=== PATIENT | female | born 1940 | race Caucasian/White ===

== ENCOUNTER 2017-07-12 15:30 | Emergency (ER) | payer MEDICARE, BC ==
[~2017-07-12] VITALS: Ht 152.4 cm; Wt 75.9 kg
[~2017-07-12 15:30] MED LIST: ANAS1 PO; ASPI81TA82 PO; ATELTAB; BENI20TA25 PO; BETH25TA PO; CITA10TA4 PO; CORE6.25 PO; HYDR-2768 PO; NEXI40CA PO; REST30CA PO; ROSU10 PO; SYNT88TA PO
[2017-07-12 15:35] VITALS: BP 173/87; PULSE 76; RESP 16; TEMP 97.3; O2SAT 94
[2017-07-12] MEDS ORDERED: LEVO75TA3 PO (15:58)
[2017-07-12] MEDS ORDERED: ROSU10 PO (15:58)
[2017-07-12] MEDS ORDERED: HYDR12.57 PO (15:58)
[2017-07-12] MEDS ORDERED: CARV6.252 PO (15:58)
[2017-07-12] MEDS ORDERED: NEXI40CA PO (15:58)
--- NOTE | 2017-07-12 16:43 | RADRPT ---
EXAM DATE/TIME: 07/12/2017 16:21 [facility] COMPARISON: CT ABDOMEN & PELVIS W CONTRAST, November 16, 2013, 16:48. INDICATIONS : Fell today , facial, head , knee and foot injurys MEDICAL HISTORY : Carcinoma, breast. Carcinoma, gastric. SURGICAL HISTORY : None. ENCOUNTER: Initial ACUITY: 1 day PAIN SCORE: 0/10 LOCATION: Bilateral chest FINDINGS: A single AP erect view of the chest was obtained. The study is Midinspiratory with crowding of the hien ng vasculature. There is mild streaky opacity at the lung bases with no focal consolidation or effusi on. Mild atherosclerotic calcifications are present in the aorta. There is a small gas shadow project ed over the mid heart likely representing a small hiatal hernia. There are overlying electrocardiogra m leads. The bony thorax is unremarkable. CONCLUSION: 1. Midinspiratory exam with no acute cardiac pulmonary disease. 2. Apparent atelectasis at the lung bases. 3. Probable retrocardiac hiatal hernia. Kwasi Espino MD on July 12, 2017 at 16:41 Board Certified Radiologist. This report was verified electronically.
--- NOTE | 2017-07-12 16:44 | RADRPT ---
EXAM DATE/TIME: 07/12/2017 16:27 [facility] COMPARISON: No previous studies available for comparison. INDICATIONS : Fell, right knee pain MEDICAL HISTORY : Carcinoma, breast. Carcinoma, gastric. SURGICAL HISTORY : None. ENCOUNTER: Initial ACUITY: 1 day PAIN SCORE: 3/10 LOCATION: Right knee FINDINGS: A standard 4 view examination of the right knee was obtained and demonstrates mild osteopenia and nor mal alignment. There is no evidence of fracture. The patella is intact. 3 compartment osteoarthritic changes are noted with mild joint space loss, sclerosis and spurring. There is no evidence of a joint effusion. The soft tissues are unremarkable. CONCLUSION: 1. No acute fracture or malalignment. 2. 3 compartment mild osteoarthritic change. Kwasi Espino MD on July 12, 2017 at 16:42 Board Certified Radiologist. This report was verified electronically.
--- NOTE | 2017-07-12 16:45 | PD ---
HPI Chief Complaint: Fall Time Seen by Provider: 15:51 Travel History International Travel<30 days: No Contact w/Intl Traveler<30days: No Traveled to known affect area: No History of Present Illness HPI Patient is a very pleasant 77-year-old female who presents to emergency room with complaints of fall. Patient reports that on Thursday, 2 days ago, she was at the [employer] playground with her 4-year-old foster child. Reports that her foster child ran at her and jumped onto her in excitement while hugging her. Reports that she fell forward and hit her head on the hard floor, reports that she did black out at that time. Patient reports that she was only unresponsive for a few minutes but was able to come to pretty fast. Reports that she was not seen in the emergency room after her fall or she felt fine. Patient reports that today, she was trying to step over her foster child when all of a sudden she put a leg out and she tripped over it. Reports that this time, she fell forward and hit her head on the hard floor. Reports no loss of consciousness at this time. Reports that she hit her head at the same exact place where she had injured it a few days ago. Reports that she is not on any anticoagulants at this time. Reports mild headache. Reports that she just wanted to make sure she didn't have a bleed in her head. Denies any vision changes this time. 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 Gynecologic Surgery: Yes (BILATERAL BREAST LUMPECTOMY AND LYMPH NODE REMOVAL) Hysterectomy: Yes (1973) Mastectomy: Yes (BILAT) Oral Surgery: Yes (goiter removed) Pacemaker: No Tonsillectomy: Yes (1950) Other Surgery: Yes (GOITER REMOVED 1981, HERNIA REPAIR) Social History Alcohol Use: No Tobacco Use: No Substance Use: No Allergies-Medications (Allergen,Severity, Reaction): Coded Allergies: Sulfa (Sulfonamide Antibiotics) (Unverified Allergy, Severe, Rash, 07/12/17 ) Reported Meds & Prescriptions Reported Meds & Active Scripts Active Reported Nexium (Esomeprazole DR) 40 Mg Capdr 40 Mg PO DAILY Levothyroxine (Levothyroxine Sodium) 75 Mcg Tab 75 Mcg PO DAILY Crestor (Rosuvastatin Calcium) 10 Mg Tab 10 Mg PO DAILY Carvedilol 6.25 Mg Tab 6.25 Mg PO BID Hydrochlorothiazide 12.5 Mg Cap 12.5 Mg PO BID Review of Systems General / Constitutional: No: Fever Eyes: No: Visual changes HENT: Positive: Headaches Cardiovascular: No: Chest Pain or Discomfort Respiratory: No: Shortness of Breath Gastrointestinal: No: Abdominal Pain Genitourinary: No: Dysuria Musculoskeletal: No: Pain Skin: No Rash Neurologic: No: Weakness Psychiatric: No: Depression Endocrine: No: Polydipsia Hematologic/Lymphatic: No: Easy Bruising Physical Exam Narrative GENERAL: Mild distress SKIN: Focused skin assessment warm/dry. HEAD: Normocephalic. EYES: Pupils equal and round. No scleral icterus. No injection or drainage. EOMIs intact, patient with right-sided periorbital ecchymosis ENT: No nasal bleeding or discharge. Mucous membranes pink and moist. NECK: Trachea midline. No JVD. CARDIOVASCULAR: Regular rate and rhythm. No murmur appreciated. RESPIRATORY: No accessory muscle use. Clear to auscultation. Breath sounds equal bilaterally. GASTROINTESTINAL: Abdomen soft, non-tender, nondistended. Hepatic and splenic margins not palpable. MUSCULOSKELETAL: No obvious deformities. No clubbing. No cyanosis. No edema. Patient with pain with range of motion to her right knee - there are no bruising on exam, no obvious fracture or open fracture NEUROLOGICAL: Awake and alert. No obvious cranial nerve deficits. Motor grossly within normal limits. Normal speech. PSYCHIATRIC: Appropriate mood and affect; insight and judgment normal. Data Data Last Documented VS Vital Signs Date Time Temp Pulse Resp B/P (MAP) Pulse Ox O2 Delivery O2 Flow Rate FiO2 07/12/17 15:53 98 Room Air 07/12/17 15:35 97.3 76 16 173/87 (115) Orders Orders Chest, Single Ap (07/12/17 16:05) Ct Brain W/O Iv Contrast(Rout) (07/12/17 16:05) Ct Cerv Spine W/O Contrast (07/12/17 16:05) Ct Facial Bones W/O Iv Cont (07/12/17 16:05) Knee, Complete (4vws) (07/12/17 ) Foot, Complete ([id number]) (07/12/17 ) Ibuprofen (Motrin) (07/12/17 17:15) MDM Medical Decision Making Medical Screen Exam Complete: Yes Emergency Medical Condition: Yes Medical Record Reviewed: Yes Interpretation(s) Vital Signs Date Time Temp Pulse Resp B/P (MAP) Pulse Ox O2 Delivery O2 Flow Rate FiO2 07/12/17 15:53 98 Room Air 07/12/17 15:35 97.3 76 16 173/87 (115) 94 Differential Diagnosis Differential Includes facial bone fracture, intracranial hemorrhage, knee contusion, patellar fracture Narrative Course Patient is a 77-year-old female who presents to emergency room for evaluation of multiple mechanical falls. Vital Signs Date Time Temp Pulse Resp B/P (MAP) Pulse Ox O2 Delivery O2 Flow Rate FiO2 07/12/17 15:53 98 Room Air 07/12/17 15:35 97.3 76 16 173/87 (115) 94 Vital signs stable this time, patient only reports taking a baby aspirin daily. CT of the head, facial bones, neck, x-ray of the knee and right foot ordered. Patient does not want any pain medications at this time, will monitor patient Last Impressions Maxillofacial CT 07/12/17 1603 Signed Impressions: Service Date/Time: Wednesday, July 12, 2017 16:36 - CONCLUSION: 1. Soft tissue swelling over the right orbit and frontal bone with no evidence of fracture. 2. Small retention cyst in the right maxillary sinus and minimal mucosal thickening. Kwasi Espino MD Head CT 07/12/17 1600 Signed Impressions: Service Date/Time: Wednesday, July 12, 2017 16:36 - CONCLUSION: 1. Soft tissue swelling over the right frontal bone and orbit with no fracture or hemorrhage. 2. Mild atrophic change. Kwasi Espino MD Chest X-Ray 07/12/17 1605 Signed Impressions: Service Date/Time: Wednesday, July 12, 2017 16:21 - CONCLUSION: 1. Midinspiratory exam with no acute cardiac pulmonary disease. 2. Apparent atelectasis at the lung bases. 3. Probable retrocardiac hiatal hernia. Kwasi Espino MD Knee X-Ray 07/12/17 0000 Signed Impressions: Service Date/Time: Wednesday, July 12, 2017 16:27 - CONCLUSION: 1. No acute fracture or malalignment. 2. 3 compartment mild osteoarthritic change. Kwasi Espino MD Foot X-Ray 07/12/17 0000 Signed Impressions: Service Date/Time: Wednesday, July 12, 2017 16:26 - CONCLUSION: 1. No acute fracture or malalignment. 2. Mild osteoarthritic change. 3. Small spur off the inferior calcaneus. Kwasi Espino MD Patient with no acute intracranial hemorrhage, no acute fractures this time. Plan for patient to follow up with her primary care doctor and will have her return to the emergency room as needed. Diagnosis Primary Impression: Fall Qualified Codes: W19.XXXA - Unspecified fall, initial encounter Additional Impressions: Facial bruising Qualified Codes: S00.83XA - Contusion of other part of head, initial encounter Head injuries Qualified Codes: S09.90XA - Unspecified injury of head, initial encounter Osteoarthritis Qualified Codes: M17.11 - Unilateral primary osteoarthritis, right knee Bone spur of right foot Patient Instructions: General Instructions Additional Instructions: Please provide patient with a copy of her studies at discharge Please follow-up with your primary care doctor Return to the emergency room as needed Return to the emergency room symptoms worsen or progress Please patient ice pack to your area of bruising Disposition: 01 DISCHARGE HOME Condition: Stable Daphnie Littlejohn DO Jul 12, 2017 16:45
--- NOTE | 2017-07-12 16:46 | RADRPT ---
EXAM DATE/TIME: 07/12/2017 16:26 [facility] COMPARISON: No previous studies available for comparison. INDICATIONS : Fell today, right foot pain, pain worse at big toe MEDICAL HISTORY : Carcinoma, breast. Carcinoma, gastric. SURGICAL HISTORY : None. ENCOUNTER: Initial ACUITY: 1 day PAIN SCORE: 3/10 LOCATION: Right foot FINDINGS: AP, lateral and oblique views of the right foot were obtained and demonstrate diffuse osteopenia with no acute fracture or malalignment. The metatarsals and phalanges are intact. There are degenerative joint changes greatest involving the metatarsal tarsal joints and intertarsal joints with joint space loss and sclerosis. There is a small spur off the inferior calcaneus at the site of attachment of th e plantar aponuerosis. No focal soft tissue abnormality is identified radiographically. CONCLUSION: 1. No acute fracture or malalignment. 2. Mild osteoarthritic change. 3. Small spur off the inferior calcaneus. Kwasi Espino MD on July 12, 2017 at 16:43 Board Certified Radiologist. This report was verified electronically.
--- NOTE | 2017-07-12 16:57 | RADRPT ---
EXAM DATE/TIME: 07/12/2017 16:36 [facility] COMPARISON: No previous studies available for comparison. INDICATIONS : Tripped and fell yesterday. Right frontal pain and swelling. RADIATION DOSE: 56.34 CTDIvol (mGy) MEDICAL HISTORY : Hypertension. Carcinoma, breast. Diabetes. Stomach cancer. Coronary artery disease. SURGICAL HISTORY : Mastectomy, bilateral. Hysterectomy. ENCOUNTER: Initial ACUITY: 2 days PAIN SCALE: 5/10 LOCATION: cranial TECHNIQUE: Multiple contiguous axial images were obtained of the head. Using automated exposure control and adj ustment of the mA and/or kV according to patient size, radiation dose was kept as low as reasonably a chievable to obtain optimal diagnostic quality images. DICOM format image data is available electro nically for review and comparison. FINDINGS: CEREBRUM: The ventricles are normal for age. No evidence of midline shift, mass lesion, hemorrhage or acute in farction. No extra-axial fluid collections are seen. POSTERIOR FOSSA: The cerebellum and brainstem are intact. The 4th ventricle is midline. The cerebellopontine angle i s unremarkable. EXTRACRANIAL: The visualized portion of the orbits is intact. SKULL: The calvaria is intact. No evidence of skull fracture. There is soft tissue swelling over the right frontal bone and orbit. CONCLUSION: 1. Soft tissue swelling over the right frontal bone and orbit with no fracture or hemorrhage. 2. Mild atrophic change. Kwasi Espino MD on July 12, 2017 at 16:54 Board Certified Radiologist. This report was verified electronically.
--- NOTE | 2017-07-12 16:59 | RADRPT ---
EXAM DATE/TIME: 07/12/2017 16:36 [facility] COMPARISON: No previous studies available for comparison. INDICATIONS : Tripped and fell yesterday. Anus swelling over the right frontal bone and orbit.. RADIATION DOSE: 25.62 CTDIvol (mGy) MEDICAL HISTORY : Carcinoma, breast. Hypertension. Stomach cancer. Diabetes. Coronary artery disease. SURGICAL HISTORY : Mastectomy, bilateral. Hysterectomy. ENCOUNTER: Initial ACUITY: 2 days PAIN SCORE: 5/10 LOCATION: Right facial TECHNIQUE: Volumetric scanning of the facial bones was performed. Using automated exposure control and adjustme nt of the mA and/or kV according to patient size, radiation dose was kept as low as reasonably achiev able to obtain optimal diagnostic quality images. DICOM format image data is available [email or web address] y for review and comparison. FINDINGS: ORBITS: The orbital and infraorbital osseous structures are intact. The retroconal structures have a normal configuration. No radiopaque foreign bodies are seen. NASAL BONE: The nasal bone and maxillary spine are intact ZYGOMATIC ARCHES: Symmetric without evidence of fracture. SINUSES: The maxillary, ethmoid and frontal sinuses are intact. There is a small retention cyst in the right maxillary sinus. There is minimal because of thickening. No air-fluid levels seen. NASAL CAVITY: The nasal septum is intact and midline. The lacrimal ducts are intact. SOFT TISSUES: No radiopaque foreign bodies seen. There is soft tissue swelling over the right orbit and frontal bon e. INTRACRANIAL: No intracranial air seen. CRIBIFORM PLATE: Grossly intact. CONCLUSION: 1. Soft tissue swelling over the right orbit and frontal bone with no evidence of fracture. 2. Small retention cyst in the right maxillary sinus and minimal mucosal thickening. Kwasi Espino MD on July 12, 2017 at 16:56 Board Certified Radiologist. This report was verified electronically.
--- NOTE | 2017-07-12 17:10 | RADRPT ---
EXAM DATE/TIME: 07/12/2017 16:36 [facility] COMPARISON: No previous studies available for comparison. INDICATIONS : Tripped and fell yesterday. Neck pain. RADIATION DOSE: 26.48 CTDIvol (mGy) MEDICAL HISTORY : Carcinoma, breast. Hypertension. Diabetes. Coronary artery disease. Stomach cancer. SURGICAL HISTORY : Mastectomy, bilateral. Hysterectomy. ENCOUNTER: Initial ACUITY: 2 days PAIN SCALE: 5/10 LOCATION: neck TECHNIQUE: Volumetric scanning of the cervical spine was performed. Multiplanar reconstructions in the sagittal, coronal and oblique axial planes were performed. Using automated exposure control and adjustment o f the mA and/or kV according to patient size, radiation dose was kept as low as reasonably achievable to obtain optimal diagnostic quality images. DICOM format image data is available electronically f or review and comparison. FINDINGS: The sagittal reconstructions demonstrate that the vertebral bodies are intact and there is normal pre vertebral soft tissues. The dens is intact and there is a normal atlantoaxial relationship. There is a slight anterior spondylolisthesis of C5 on C6 of 1-2 mm. There are mild degenerative changes at the C6-7 level. Degenerative changes are noted involving the atlantoaxial joint. The axial images demonstrate that the vertebral bodies and posterior elements are intact. The soft ti ssues are within normal limits. There is no evidence of acute fracture or malalignment. There are deg enerative changes involving the facets. CONCLUSION: Negative trauma CT. Kwasi Espino MD on July 12, 2017 at 17:01 Board Certified Radiologist. This report was verified electronically.
[2017-07-12] MEDS ORDERED: IBUPROFEN 600 MG TAB PO ONE (17:15)
== END 2017-07-12 17:35 | disposition home or self-care (01) ==
LOC: PHED 15:30
DX: S00.83XA Contusion of other part of head, initial encounter (principal); S09.90XA Unspecified injury of head, initial encounter; M17.11 Unilateral primary osteoarthritis, right knee; Z85.028 Personal history of other malignant neoplasm of stomach; Z85.3 Personal history of malignant neoplasm of breast; E78.00 Pure hypercholesterolemia, unspecified; I50.9 Heart failure, unspecified; I11.0 Hypertensive heart disease with heart failure; J44.9 Chronic obstructive pulmonary disease, unspecified; I25.10 Atherosclerotic heart disease of native coronary artery without angina pectoris; E11.9 Type 2 diabetes mellitus without complications; E03.9 Hypothyroidism, unspecified
CPT/HCPCS: 70450; 70486; 71010; 72125; 73564; 73630; 99285

== ENCOUNTER 2018-03-03 14:20 | Observation (INO) | payer MEDICARE, BC ==
[~2018-03-03] VITALS: Ht 152.4 cm; Wt 77.7 kg
[~2018-03-03 14:20] MED LIST changes: -ANAS1 PO; -ASPI81TA82 PO; -ATELTAB; -BENI20TA25 PO; -BETH25TA PO; +CARV6.252 PO; -CITA10TA4 PO; -CORE6.25 PO; -HYDR-2768 PO; +HYDR12.57 PO; +LEVO75TA3 PO; -REST30CA PO; -SYNT88TA PO
[2018-03-03 14:37] VITALS: BP 127/74; PULSE 84; RESP 16; TEMP 98.4; O2SAT 94
[2018-03-03] MEDS ORDERED: PANTOPRAZOLE INJ 80 MG in SODIUM CHLORIDE 0.9% INJ 35 ML IV ONE (14:53)
[2018-03-03 14:58] VITALS: BP 155/79; PULSE 84; RESP 18; O2SAT 96
--- NOTE | 2018-03-03 14:59 | PD ---
HPI Chief Complaint: GI Complaint Time Seen by Provider: 14:43 Travel History International Travel<30 days: No Contact w/Intl Traveler<30days: No Traveled to known affect area: No History of Present Illness HPI This is a 77-year-old female who presents for evaluation. For the past 4-5 days she has been feeling nauseous. She reports over the past 2 days she has been having nausea, vomiting, diarrhea. She reports multiple episodes of black stool as well as black emesis. She reports some streaks of bright red blood in her emesis yesterday. She denies any lightheadedness, dizziness, shortness of breath, chest pain, abdominal pain, fevers, chills. She reports that she uses aspirin on a daily basis and for the past several months she has been using BC powder on a regular basis for treatment of back pain. Denies any use of Pepto- Bismol. She follows with ordnance engineer Dr. Brady. She called his office today and was referred here for further evaluation. 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 Gynecologic Surgery: Yes (BILATERAL BREAST LUMPECTOMY AND LYMPH NODE REMOVAL) Hysterectomy: Yes (1973) Mastectomy: Yes (BILAT) Oral Surgery: Yes (goiter removed) Pacemaker: No Tonsillectomy: Yes (1950) Other Surgery: Yes (GOITER REMOVED 1981, HERNIA REPAIR) Social History Alcohol Use: No Tobacco Use: No Substance Use: No Allergies-Medications (Allergen,Severity, Reaction): Coded Allergies: Sulfa (Sulfonamide Antibiotics) (Unverified Allergy, Severe, Rash, 07/12/17 ) Reported Meds & Prescriptions Reported Meds & Active Scripts Active Reported Zolpidem (Zolpidem Tartrate) 10 Mg Tab 10 Mg PO HS PRN Meloxicam 7.5 Mg Tab 7.5 Mg PO DAILY Benicar (Olmesartan) 20 Mg Tab 20 Mg PO DAILY Bethanechol 25 Mg Tab 25 Mg PO Q8HR Nexium (Esomeprazole DR) 40 Mg Capdr 40 Mg PO DAILY Levothyroxine (Levothyroxine Sodium) 75 Mcg Tab 88 Mcg PO DAILY Crestor (Rosuvastatin Calcium) 10 Mg Tab 10 Mg PO DAILY Carvedilol 6.25 Mg Tab 6.25 Mg PO BID Hydrochlorothiazide 12.5 Mg Cap 25 Mg PO DAILY Review of Systems Except as stated in HPI: all other systems reviewed are Neg Physical Exam Narrative GENERAL: Pleasant well-developed well-nourished female no acute distress SKIN: Warm and dry. HEAD: Atraumatic. Normocephalic. EYES: Pupils equal and round. No scleral icterus. No injection or drainage. ENT: No nasal bleeding or discharge. Mucous membranes pink and moist. NECK: Trachea midline. No JVD. CARDIOVASCULAR: Regular rate and rhythm. No murmur appreciated. RESPIRATORY: No accessory muscle use. Clear to auscultation. Breath sounds equal bilaterally. GASTROINTESTINAL: Abdomen soft, non-tender, nondistended. Hepatic and splenic margins not palpable. Rectal examination in the presence of a female nurse reveals light brown stool with streaks of dark red blood, Hemoccult positive. MUSCULOSKELETAL: No obvious deformities. No clubbing. No cyanosis. No edema. NEUROLOGICAL: Awake and alert. No obvious cranial nerve deficits. Motor grossly within normal limits. Normal speech. PSYCHIATRIC: Appropriate mood and affect; insight and judgment normal. Data Data Last Documented VS Vital Signs Date Time Temp Pulse Resp B/P (MAP) Pulse Ox O2 Delivery O2 Flow Rate FiO2 03/03/18 14:58 18 03/03/18 14:58 84 155/79 (104) 96 Room Air 03/03/18 14:37 98.4 Orders Orders Complete Blood Count With Diff (03/03/18 14:53) Comprehensive Metabolic Panel (03/03/18 14:53) Lipase (03/03/18 14:53) Prothrombin Time / Inr (Pt) (03/03/18 14:53) Act Partial Throm Time (Ptt) (03/03/18 14:53) Type And Screen (03/03/18 14:53) Ecg Monitoring (03/03/18 14:53) Iv Access Insert/Monitor (03/03/18 14:53) Oximetry (03/03/18 14:53) Sodium Chloride 0.9% Flush (Ns Flush) (03/03/18 15:00) Sodium Chloride 0.9... W/Pantoprazole In (03/03/18 14:53) Ondansetron Odt (Zofran Odt) (03/03/18 15:00) Add Patient To Providers List (03/03/18 ) ^ Other Nursing Orders (03/03/18 15:26) Consult Gastroenterology (03/03/18 ) Acetaminophen (Tylenol) (03/03/18 15:45) (Hub Use Only)Inp Phy Cons/Ref (03/03/18 ) Admit Order (Ed Use Only) (03/03/18 16:14) Comprehensive Metabolic Panel (03/04/18 06:00) Free Thyroxine (T4) (03/04/18 06:00) Hemoglobin (Hgb) A1c (03/04/18 06:00) Magnesium (Mg) (03/04/18 06:00) Phosphorus (Po4) (03/04/18 06:00) Thyroid Stimulating Hormone (03/04/18 06:00) Complete Blood Count With Diff (03/04/18 06:00) Bethanechol (Urecholine) (03/03/18 22:00) Carvedilol (Coreg) (03/03/18 21:00) Hydrochlorothiazide (Microzide) (03/04/18 09:00) Levothyroxine (Synthroid) (03/04/18 09:00) Zolpidem (Ambien) (03/03/18 16:15) (Nf) Olmesartan (Benicar) (03/04/18 09:00) (Nf) Rosuvastatin (Crestor) (03/04/18 09:00) Place In Observation (03/03/18 ) Code Status (03/03/18 16:16) Vital Signs (Adult) Q4H (03/03/18 16:16) Activity Oob Ad Shaila (03/03/18 16:16) Bath Attendant / Telemetry .CONTINUOUS (03/03/18 16:16) Intake + Output MAGGIE.QSHIFT (03/03/18 16:16) Diet Clear Liquid (03/03/18 Dinner) Sodium Chloride 0.9% Flush (Ns Flush) (03/03/18 16:30) Sodium Chloride 0.9% Flush (Ns Flush) (03/03/18 21:00) Metoclopramide Inj (Reglan Inj) (03/03/18 16:30) Prochlorperazine Supp (Compazine Supp) (03/03/18 16:30) Prothrombin Time / Inr (Pt) (03/04/18 06:00) Resp Oxygen Bala C Titrat 1-4 L (03/03/18 ) Case Management Consult (03/03/18 16:16) Scd Bilateral/Knee High MAGGIE.BID (03/03/18 16:16) [place]son Bilateral/Knee High MAGGIE.QSHIFT (03/03/18 16:30) Acetaminophen (Tylenol) (03/03/18 16:30) Oxycodone-Acetamin 5-325 Mg (Percocet (03/03/18 16:30) Oxycodone-Acetamin 10-325 Mg (Percocet 1 (03/03/18 16:30) Morphine Inj (Morphine Inj) (03/03/18 16:30) Morphine Inj (Morphine Inj) (03/03/18 16:30) Naloxone Inj (Narcan Inj) (03/03/18 16:30) Docusate Sodium-Senna (Olga Lidia-Colace) (03/03/18 21:00) Magnesium Hydroxide Liq (Milk Of Magnesi (03/03/18 16:30) Sennosides (Senokot) (03/03/18 16:30) Bisacodyl Supp (Dulcolax Supp) (03/03/18 16:30) Lactulose Liq (Lactulose Liq) (03/03/18 16:30) Vital Signs (Adult) Q4H (03/03/18 16:16) Intake + Output MAGGIE.QSHIFT (03/03/18 16:16) Diet Npo (03/04/18 Breakfast) Sodium Chloride 0.9% Flush (Ns Flush) (03/03/18 16:30) Sodium Chloride 0.9% Flush (Ns Flush) (03/03/18 21:00) Sodium Chlor 0.9% 1000 Ml Inj (Ns 1000 M (03/03/18 16:16) Pantoprazole Inj (Protonix Inj) (03/03/18 21:00) Resp Oxygen Bala C Titrat 1-4 L (03/03/18 ) Labs Laboratory Tests Test 03/03/18 15:00 White Blood Count 7.5 TH/MM3 Red Blood Count 4.77 MIL/MM3 Hemoglobin 14.4 GM/DL Hematocrit 42.8 % Mean Corpuscular Volume 89.9 FL Mean Corpuscular Hemoglobin 30.2 PG Mean Corpuscular Hemoglobin Concent 33.6 % Red Cell Distribution Width 13.9 % Platelet Count 283 TH/MM3 Mean Platelet Volume 7.4 FL Neutrophils (%) (Auto) 55.2 % Lymphocytes (%) (Auto) 33.1 % Monocytes (%) (Auto) 8.4 % Eosinophils (%) (Auto) 2.7 % Basophils (%) (Auto) 0.6 % Neutrophils # (Auto) 4.1 TH/MM3 Lymphocytes # (Auto) 2.5 TH/MM3 Monocytes # (Auto) 0.6 TH/MM3 Eosinophils # (Auto) 0.2 TH/MM3 Basophils # (Auto) 0.0 TH/MM3 CBC Comment DIFF FINAL Differential Comment Prothrombin Time 10.6 SEC Prothromb Time International Ratio 1.0 RATIO Activated Partial Thromboplast Time 29.9 SEC Blood Urea Nitrogen 5 MG/DL Creatinine 0.89 MG/DL Random Glucose 143 MG/DL Total Protein 7.8 GM/DL Albumin 3.9 GM/DL Calcium Level 8.9 MG/DL Alkaline Phosphatase 93 U/L Aspartate Amino Transf (AST/SGOT) 22 U/L Alanine Aminotransferase (ALT/SGPT) 17 U/L Total Bilirubin 0.5 MG/DL Sodium Level 137 MEQ/L Potassium Level 3.7 MEQ/L Chloride Level 100 MEQ/L Carbon Dioxide Level 28.3 MEQ/L Anion Gap 9 MEQ/L Estimat Glomerular Filtration Rate 62 ML/MIN Lipase 54 U/L [facility] Medical Decision Making Medical Screen Exam Complete: Yes Emergency Medical Condition: Yes Medical Record Reviewed: Yes Differential Diagnosis GI bleed, peptic ulcer disease, acute anemia, AV malformation, malignancy, polyps, colitis, esophageal varices Narrative Course Patient was placed on ECG monitoring pulse oximetry lab work was ordered. The patient was given Zofran, Protonix bolus. Lab work is reassuring. Operations Processor Dr. Yost came down to see the patient. He plans on performing endoscopy tomorrow and would like the patient to be npo after midnight, recommends reverse Trendelenburg position to help with reflux. HemaPrompt Point of Care Internal Pos. & Neg. Controls: Passed Fecal Specimen Occult Blood: Positive Diagnosis Primary Impression: Upper GI bleed Admitting Information Admitting Physician Requests: Observation Viktor Tan March 03, 2018 14:59
[2018-03-03] MEDS ORDERED: SODIUM CHLORIDE 0.9% FLUSH 10 ML FLUSH IVF PRN (15:00)
[2018-03-03] MEDS ORDERED: ONDANSETRON ODT 4 MG TAB PO ONE (15:00)
[2018-03-03 15:20] LABS: AUTOMATED NEUTROPHIL # 4.1 TH/MM3 (1.8-7.7); BASOPHIL % 0.6 % (0.0-2.0); EOSINOPHIL # 0.2 TH/MM3 (0-0.4); EOSINOPHIL % 2.7 % (0.0-4.0); HEMATOCRIT 42.8 % (35.0-46.0); HEMOGLOBIN 14.4 GM/DL (11.6-15.3); LYMPH % 33.1 % (9.0-44.0); LYMPHOCYTE # 2.5 TH/MM3 (1.0-4.8); MEAN CELL VOLUME 89.9 FL (80.0-100.0); MEAN CORPUSCULAR HEMOGLOBIN 30.2 PG (27.0-34.0); MEAN CORPUSCULAR HGB CONC 33.6 % (32.0-36.0); MEAN PLATELET VOLUME 7.4 FL (7.0-11.0); MONO % 8.4 % (0.0-8.0); MONOCYTE # 0.6 TH/MM3 (0-0.9); NEUT % 55.2 % (16.0-70.0); PLATELET COUNT 283 TH/MM3 (150-450); RED BLOOD COUNT 4.77 MIL/MM3 (4.00-5.30); RED CELL DISTRIBUTION WIDTH 13.9 % (11.6-17.2); WHITE BLOOD COUNT 7.5 TH/MM3 (4.0-11.0)
[2018-03-03 15:31] LABS: ALBUMIN 3.9 GM/DL (3.4-5.0); ALT (GPT) 17 U/L (10-53); AST (GOT) 22 U/L (15-37); BICARBONATE 28.3 MEQ/L (21.0-32.0); BLOOD UREA NITROGEN 5 MG/DL (7-18); CALCIUM 8.9 MG/DL (8.5-10.1); CHLORIDE 100 MEQ/L (98-107); CREATININE 0.89 MG/DL (0.50-1.00); GLOMERULAR FILTRATION RATE 62 ML/MIN (>89); GLUCOSE,RANDOM 143 MG/DL (74-106); SODIUM (NA) 137 MEQ/L (136-145)
[2018-03-03 15:33] LABS: ALKALINE PHOSPHATASE 93 U/L (45-117); TOTAL BILIRUBIN ADULT 0.5 MG/DL (0.2-1.0); TOTAL PROTEIN 7.8 GM/DL (6.4-8.2)
[2018-03-03 15:40] LABS: PROTHROMBIN TIME - PATIENT 10.6 SEC (9.8-11.6)
[2018-03-03] MEDS ORDERED: ACETAMINOPHEN 325 MG TAB PO ONE (15:45)
[2018-03-03] MEDS ORDERED: ZOLP10TA3 PO (16:12)
[2018-03-03] MEDS ORDERED: BETH25TA2 PO (16:12)
[2018-03-03] MEDS ORDERED: OLME1TAB PO (16:12)
[2018-03-03] MEDS ORDERED: MELO7.5T27 PO (16:12)
[2018-03-03] MEDS ORDERED: ZOLPIDEM TARTRATE 10 MG TAB PO PRN (16:15)
[2018-03-03] MEDS ORDERED: PROCHLORPERAZINE 25 MG SUPP PR PRN (16:30)
[2018-03-03] MEDS ORDERED: oxyCODONE/ACETAMINOPHEN 5 MG/325 MG TAB PO PRN (16:30)
[2018-03-03] MEDS ORDERED: BISACODYL 10 MG SUPP RECTAL PRN (16:30)
[2018-03-03] MEDS ORDERED: NALOXONE HCL 0.4 MG/ML AMP IV PUSH PRN (16:30)
[2018-03-03] MEDS ORDERED: SENNOSIDES 8.6 MG TAB PO PRN (16:30)
[2018-03-03] MEDS ORDERED: MAGNESIUM HYDROXIDE SUSP 30 ML CUP PO PRN (16:30)
[2018-03-03] MEDS ORDERED: METOCLOPRAMIDE HCL 10 MG/2 ML VIAL IV PUSH PRN (16:30)
[2018-03-03] MEDS ORDERED: SODIUM CHLORIDE 0.9% FLUSH 10 ML FLUSH IV FLUSH PRN ×2 (16:30)
[2018-03-03] MEDS ORDERED: LACTULOSE SYRUP 20 GM/30 ML CUP PO PRN (16:30)
[2018-03-03] MEDS ORDERED: oxyCODONE/ACETAMINOPHEN 10 MG/325 MG TAB PO PRN (16:30)
[2018-03-03] MEDS ORDERED: ACETAMINOPHEN 325 MG TAB PO PRN (16:30)
[2018-03-03 17:06] VITALS: BP 125/69; PULSE 70; RESP 18; TEMP 97.8; O2SAT 98
[2018-03-03] MEDS ORDERED: MORPHINE SULFATE 4 MG/ML INJ IV PUSH PRN ×2 (18:15)
--- NOTE | 2018-03-03 18:28 | HHI.HP ---
[facility] Ramin Huang MD Admission Diagnosis Upper GI bleed Diagnoses: (1) Upper GI bleed Diagnosis: Principal Chief Complaint: GI complaints Travel History International Travel<30 Days: No Contact w/Intl Traveler <30 Da: No Traveled to Known Affected Are: No History of Present Illness Patient is a 77-year-old female who presented to the emergency department today. She is over the past 4-5 days and feeling nauseated. She also reports that over the past 2-3 days she has been having some nausea and vomiting and some diarrhea. She also reports multiple episodes of black stools as well as some black emesis. Patient HAS also had some bright red blood in her vomit yesterday. SHE denies any lightheadedness, denies any dizziness, denies any shortness of breath, denies any chest pain, denies any abdominal pain, denies any fever, OR chills. She takes an aspirin daily in the morning as well as some meloxicam. As well as BC powder at night daily USUALLY ON AN EMPTY STOMACH. Follows with Dr. JI. WAS REFERRED HERE BY DR JI AND WILL UNDERGO ENDOSCOPY WITH DR MENDIOLA TOMORROW. DOES NOT LIKE TO TAKE PAIN MEDICATIONS OF ANY KIND Review of Systems Constitutional: DENIES: Diaphoretic episodes, Fatigue, Fever, Weight gain, Weight loss, Chills, Dizziness, Change in appetite, Night Sweats Endocrine: DENIES: Abnorml menstrual pattern, Heat/cold intolerance, Polydipsia , Polyuria Eyes: DENIES: Blurred vision, Diplopia, Eye inflammation, Eye pain, Vision loss , Photosensitivity, Double Vision Ears, nose, mouth, throat: DENIES: Tinnitus, Hearing loss, Vertigo, Nasal discharge, Oral lesions, Throat pain, Hoarseness, Ear Pain, Running Nose, Epistaxis, Sinus Pain, Toothache, Odynophagia Respiratory: DENIES: Apneas, Cough, Snoring, Wheezing, Hemoptysis, Sputum production, Shortness of breath Cardiovascular: DENIES: Chest pain, Palpitations, Syncope, Dyspnea on Exertion , PND, Lower Extremity Edema, Orthopnea, Claudication Gastrointestinal: COMPLAINS OF: Abdominal pain, Black stools, Nausea, Vomiting , DENIES: Bloody stools, Constipation, Diarrhea, Difficulty Swallowing, Anorexia Genitourinary: DENIES: Abnormal vaginal bleeding, Dysmenorrhea, Dyspareunia, Sexual dysfunction Musculoskeletal: COMPLAINS OF: Joint pain, Back pain, DENIES: Muscle aches, Stiffness, Joint Swelling, Neck pain Integumentary: DENIES: Abnormal pigmentation, Pruritus, Rash, Nail changes, Breast masses, Breast skin changes, Nipple discharge Hematologic/lymphatic: DENIES: Bruising, Lymphadenopathy Immunologic/allergic: DENIES: Eczema, Urticaria Neurologic: DENIES: Abnormal gait, Headache, Localized weakness, Paresthesias, Seizures, Speech Problems, Tremor, Poor Balance Psychiatric: DENIES: Anxiety, Confusion, Mood changes, Depression, Hallucinations, Agitation, Suicidal Ideation, Homicidal Ideation, Delusions Except as stated in HPI: all other systems reviewed are Neg Past Family Social History Past Medical History Chronic aspirin use Chronic meloxicam use Asthma History of breast cancer bilaterally History of stomach cancer treated with laser in 2011 History of cardiac catheterization Hyperlipidemia Congestive heart failure COPD Coronary artery disease Diabetes History of stomach cancer GERD Hiatal hernia Hypertension Hypothyroidism Arthritis bilateral knees History of radiation therapy Menopausal Past Surgical History Tattoo on breast from a recognizing her cancer was Bilateral breast lumpectomy and lymph node removal Hysterectomy Bilateral meniscectomy Goiter removal tonsillectomy Hernia repair Reported Medications Reported Meds & Active Scripts Active Reported Zolpidem (Zolpidem Tartrate) 10 Mg Tab 10 Mg PO HS PRN Meloxicam 7.5 Mg Tab 7.5 Mg PO DAILY Benicar (Olmesartan) 20 Mg Tab 20 Mg PO DAILY Bethanechol 25 Mg Tab 25 Mg PO Q8HR Nexium (Esomeprazole DR) 40 Mg Capdr 40 Mg PO DAILY Levothyroxine (Levothyroxine Sodium) 75 Mcg Tab 88 Mcg PO DAILY Crestor (Rosuvastatin Calcium) 10 Mg Tab 10 Mg PO DAILY Carvedilol 6.25 Mg Tab 6.25 Mg PO BID Hydrochlorothiazide 12.5 Mg Cap 25 Mg PO DAILY Allergies: Coded Allergies: Sulfa (Sulfonamide Antibiotics) (Unverified Allergy, Severe, Rash, 07/12/17 ) Active Ordered Medications Current Medications Sodium Chloride (NS Flush) 2 ml UNSCH PRN IVF FLUSH AFTER USING IV ACCESS; Start 03/03/18 at 15:00; Stop 03/03/18 at 17:41; Status DC Pantoprazole Sodium 80 mg/ Sodium Chloride 35 ml @ 420 mls/hr Q5M ONCE IV Last administered on 03/03/18at 14:53; Start 03/03/18 at 14:53; Stop 03/03/18 at 14:57; Status DC Ondansetron HCl (Zofran Odt) 4 mg ONCE ONCE PO Last administered on at 15:00; Start 03/03/18 at 15:00; Stop 03/03/18 at 15:01; Status DC Acetaminophen (Tylenol) 650 mg ONCE ONCE PO Last administered on 03/03/18at 17: 30; Start 03/03/18 at 15:45; Stop 03/03/18 at 16:05; Status DC Bethanechol Chloride (Urecholine) 25 mg Q8HR PO ; Start 03/03/18 at 22:00 Carvedilol (Coreg) 6.25 mg BID PO ; Start 03/03/18 at 21:00 Hydrochlorothiazide (Microzide) 25 mg DAILY PO ; Start 03/04/18 at 09:00 Levothyroxine Sodium (Synthroid) 88 mcg DAILY@0600 PO ; Start 03/04/18 at 06:00 Zolpidem Tartrate (Ambien) 10 mg HS PRN PO INSOMNIA; Start 03/03/18 at 16:15 Losartan Potassium (Cozaar) 50 mg DAILY PO ; Start 03/04/18 at 09:00 Atorvastatin Calcium (Lipitor) 20 mg DAILY PO ; Start 03/04/18 at 09:00 Sodium Chloride (NS Flush) 2 ml UNSCH PRN IV FLUSH FLUSH AFTER USING IV ACCESS ; Start 03/03/18 at 16:30 Sodium Chloride (NS Flush) 2 ml BID IV FLUSH ; Start 03/03/18 at 21:00 Metoclopramide HCl (Reglan Inj) 5 mg Q6H PRN IV PUSH NAUSEA OR VOMITING; Start 03/03/18 at 16:30 Prochlorperazine (Compazine Supp) 25 mg Q12H PRN NV NAUSEA OR VOMITING; Start 03/03/18 at 16:30; Status UNV Acetaminophen (Tylenol) 650 mg Q6H PRN PO PAIN SCALE 1 TO 2; Start 03/03/18 at 16:30 Oxycodone/ Acetaminophen (Percocet 5-325 Mg) 1 tab Q6H PRN PO PAIN SCALE 3 TO 5; Start 03/03/18 at 16:30 Oxycodone/ Acetaminophen (Percocet 10-325 Mg) 1 tab Q6H PRN PO PAIN SCALE 6 TO 10; Start 03/03/18 at 16:30 Morphine Sulfate (Morphine Inj) 2 mg Q3H PRN IV PUSH Pain 3-5; if unable to take PO; Start 03/03/18 at 18:15 Morphine Sulfate (Morphine Inj) 4 mg Q3H PRN IV PUSH Pain 6-10;if unable to take PO; Start 03/03/18 at 18:15 Naloxone HCl (Narcan Inj) 0.4 mg UNSCH PRN IV PUSH SEE LABEL COMMENTS; Start at 16:30 Senna/Docusate Sodium (Olga Lidia-Colace) 1 tab BID PO ; Start 03/03/18 at 21:00 Magnesium Hydroxide (Milk Of Magnesia Liq) 30 ml Q12H PRN PO Mild constipation ; Start 03/03/18 at 16:30 Sennosides (Senokot) 17.2 mg Q12H PRN PO Moderate constipation; Start 03/03/18 at 16:30 Bisacodyl (Dulcolax Supp) 10 mg DAILY PRN RECTAL SEVERE CONSITIPATION; Start at 16:30 Lactulose (Lactulose Liq) 30 ml DAILY PRN PO SEVERE CONSITIPATION; Start at 16:30 Sodium Chloride (NS Flush) 2 ml UNSCH PRN IV FLUSH FLUSH AFTER USING IV ACCESS ; Start 03/03/18 at 16:30 Sodium Chloride (NS Flush) 2 ml BID IV FLUSH ; Start 03/03/18 at 21:00 Sodium Chloride 1,000 ml @ 100 mls/hr Q10H IV ; Start 03/03/18 at 18:00 Pantoprazole Sodium (Protonix Inj) 40 mg BID IV PUSH ; Start 03/03/18 at 21:00 Family History Negative history of breast cancer or other malignancies in the family Social History Denies any tobacco, alcohol, or substance use Physical Exam Vital Signs Vital Signs Date Time Temp Pulse Resp B/P (MAP) Pulse Ox O2 Delivery O2 Flow Rate FiO2 03/03/18 17:06 97.8 70 18 125/69 (87) 98 03/03/18 14:58 18 03/03/18 14:58 84 18 155/79 (104) 96 Room Air 03/03/18 14:37 98.4 84 16 127/74 (91) 94 Physical Exam GENERAL: This is a well-nourished, well-developed patient, in no apparent distress. SKIN: No rashes, ecchymoses or lesions. Cool and dry. HEAD: Atraumatic. Normocephalic. No temporal or scalp tenderness. EYES: Pupils equal round and reactive. Extraocular motions intact. No scleral icterus. No injection or drainage. ENT: Nose without bleeding, purulent drainage or septal hematoma. Throat without erythema, tonsillar hypertrophy or exudate. Uvula midline. Airway patent. NECK: Trachea midline. No JVD or lymphadenopathy. Supple, nontender, no meningeal signs. CARDIOVASCULAR: Regular rate and rhythm without murmurs, gallops, or rubs. S1- S2 no S3 or S4 RESPIRATORY: Clear to auscultation. Breath sounds equal bilaterally. No wheezes , rales, or rhonchi. GASTROINTESTINAL: Abdomen soft, non-tender, nondistended. No hepato-splenomegaly , or palpable masses. No guarding. MUSCULOSKELETAL: Extremities without clubbing, cyanosis, or edema. No joint tenderness, effusion, or edema noted. No calf tenderness. Negative Homans sign bilaterally. NEUROLOGICAL: Awake and alert. Cranial nerves II through XII intact. Motor and sensory grossly within normal limits. Five out of 5 muscle strength in all muscle groups. Normal speech. Insight and judgment is good Mood and behaviors are appropriate Laboratory Laboratory Tests Test 03/03/18 15:00 White Blood Count 7.5 Red Blood Count 4.77 Hemoglobin 14.4 Hematocrit 42.8 Mean Corpuscular Volume 89.9 Mean Corpuscular Hemoglobin 30.2 Mean Corpuscular Hemoglobin Concent 33.6 Red Cell Distribution Width 13.9 Platelet Count 283 Mean Platelet Volume 7.4 Neutrophils (%) (Auto) 55.2 Lymphocytes (%) (Auto) 33.1 Monocytes (%) (Auto) 8.4 Eosinophils (%) (Auto) 2.7 Basophils (%) (Auto) 0.6 Neutrophils # (Auto) 4.1 Lymphocytes # (Auto) 2.5 Monocytes # (Auto) 0.6 Eosinophils # (Auto) 0.2 Basophils # (Auto) 0.0 CBC Comment DIFF FINAL Differential Comment Prothrombin Time 10.6 Prothromb Time International Ratio 1.0 Activated Partial Thromboplast Time 29.9 Blood Urea Nitrogen 5 Creatinine 0.89 Random Glucose 143 Total Protein 7.8 Albumin 3.9 Calcium Level 8.9 Alkaline Phosphatase 93 Aspartate Amino Transf (AST/SGOT) 22 Alanine Aminotransferase (ALT/SGPT) 17 Total Bilirubin 0.5 Sodium Level 137 Potassium Level 3.7 Chloride Level 100 Carbon Dioxide Level 28.3 Anion Gap 9 Estimat Glomerular Filtration Rate 62 Lipase 54 Result Diagram: 03/03/18 1500 03/03/18 1500 Imaging None Caprini VTE Risk Assessment Caprini VTE Risk Assessment: No/Low Risk (score <= 1) Caprini Risk Assessment Model Point Value = 1 Point Value = 2 Point Value = 3 Point Value = 5 Age 41-60 Minor surgery BMI > 25 kg/m2 Swollen legs Varicose veins or History of unexplained or recurrent spontaneous Oral contraceptives or hormone replacement Sepsis (< 1 month) Serious lung disease, including pneumonia (< 1 month) Abnormal pulmonary function Acute myocardial infarction Congestive heart failure (< 1 month) History of inflammatory bowel disease Medical patient at bed rest Age 61-74 Arthroscopic surgery Major open surgery (> 45 min) Laparoscopic surgery (> 45 min) Malignancy Confined to bed (> 72 hours) Immobilizing plaster cast Central venous access Age >= 75 History of VTE Family history of VTE Factor V Leiden Prothrombin [id number] Lupus anticoagulant Anticardiolipin antibodies Elevated serum homocysteine Heparin-induced thrombocytopenia Other congenital or acquired thrombophilia Stroke (< 1 month) Elective arthroplasty Hip, pelvis, or leg fracture Acute spinal cord injury (< 1 month) Prophylaxis Regimen Total Risk Factor Score Risk Level Prophylaxis Regimen 0-1 Low Early ambulation 2 Moderate Order ONE of the following: *Sequential Compression Device (SCD) *Heparin 5000 units SQ BID 3-4 Higher Order ONE of the following medications: *Heparin 5000 units SQ TID *Enoxaparin/Lovenox 40 mg SQ daily (WT < 150 kg, CrCl > 30 mL/min) *Enoxaparin/Lovenox 30 mg SQ daily (WT < 150 kg, CrCl > 10-29 mL/min) *Enoxaparin/Lovenox 30 mg SQ BID (WT < 150 kg, CrCl > 30 mL/min) AND/OR *Sequential Compression Device (SCD) 5 or more Highest Order ONE of the following medications: *Heparin 5000 units SQ TID (Preferred with Epidurals) *Enoxaparin/Lovenox 40 mg SQ daily (WT < 150 kg, CrCl > 30 mL/min) *Enoxaparin/Lovenox 30 mg SQ daily (WT < 150 kg, CrCl > 10-29 mL/min) *Enoxaparin/Lovenox 30 mg SQ BID (WT < 150 kg, CrCl > 30 mL/min) AND *Sequential Compression Device (SCD) Assessment and Plan Assessment and Plan Upper GI bleed suspected from NSAID use including BC powder and aspirin and meloxicam in combination Scheduled to undergo an EGD tomorrow with Dr. MENDIOLA Hypertension continue on her home medications continue on Benicar it or its equivalent continue on Coreg and continue on hydrochlorothiazide Insomnia continue on home Ambien Continue on Nexium or the equivalent twice daily for GI issues Hypothyroidism continue on levothyroxine Hyperlipidemia continue on her Crestor No active anemia will check a.m. labs Keep n.p.o. after midnight for procedure Code Status Full code Discussed Condition With Emergency room physician merchandising assistant and RN and patient and daughter at bedside Fernando Alexander DO March 03, 2018 18:28
[2018-03-03] MEDS ORDERED: ONDANSETRON ODT 4 MG TAB PO PRN (18:30)
[2018-03-03] MEDS: SODIUM CHLOR 0.9% 1000 ML INJ 1,000 ML IV SCH (19:36)
[2018-03-03 20:05] VITALS: BP 122/61; PULSE 81; RESP 16; TEMP 97.9; O2SAT 93
[2018-03-03] MEDS: PANTOPRAZOLE SODIUM 40 MG VIAL IV PUSH SCH (20:07)
[2018-03-03] MEDS: CARVEDILOL 6.25 MG TAB PO SCH (20:07)
[2018-03-03] MEDS: SODIUM CHLORIDE 0.9% FLUSH 10 ML FLUSH IV FLUSH SCH (20:07)
[2018-03-03] MEDS: DOCUSATE SODIUM 50 MG/SENNA 8.6 MG TAB PO SCH (20:08)
[2018-03-03] MEDS ORDERED: SODIUM CHLORIDE 0.9% FLUSH 10 ML FLUSH IV FLUSH SCH (21:00)
[2018-03-03] MEDS: BETHANECHOL CHL 25 MG TAB PO SCH (23:18)
[2018-03-03 23:54] VITALS: BP 110/65; PULSE 73; RESP 18; TEMP 97.8; O2SAT 95
[2018-03-04 02:56] VITALS: BP 117/66; PULSE 71; RESP 18; TEMP 97.8; O2SAT 93
[2018-03-04 03:32] VITALS: PULSE 66
[2018-03-04] MEDS ORDERED: LEVOTHYROXINE SODIUM 88 MCG TAB PO SCH (06:00)
[2018-03-04] MEDS: SODIUM CHLOR 0.9% 1000 ML INJ 1,000 ML IV SCH ×2 (06:01→13:57)
[2018-03-04] MEDS: BETHANECHOL CHL 25 MG TAB PO SCH ×2 (06:01→13:57)
[2018-03-04] MEDS ORDERED: LACTATED RINGER'S 1000 ML IV PRN (06:30)
[2018-03-04] MEDS ORDERED: POVIDONE IODINE 5% (ANTISEPSIS KIT) 4 APPLICATIONS EACH NARE PRN (06:30)
[2018-03-04] MEDS ORDERED: CHLORHEXIDINE GLUCONATE 2 % 1 PACK (2 CLOTHS) TOPICAL PRN (06:30)
[2018-03-04] MEDS ORDERED: SODIUM CHLORID 0.9% 500 ML IV PRN (06:30)
[2018-03-04 07:17] VITALS: BP 159/89; PULSE 83; RESP 16; TEMP 97.9; O2SAT 95
--- NOTE | 2018-03-04 07:27 | HHI.PR ---
Subjective Remarks Follow up for GI bleed with hematemesis. The patient is seen just prior to EGD. She denies any current abdominal pain or vomiting overnight. Has occasional bouts of nausea. Denies fevers/chills. Denies any lightheadedness/dizziness. She does report a mild headache this morning, typically takes BC powder at home for headaches. Denies any other medical complaints at this time. Objective Vitals Vital Signs Date Time Temp Pulse Resp B/P (MAP) Pulse Ox O2 Delivery O2 Flow Rate FiO2 03/04/18 07:17 97.9 83 16 159/89 (112) 95 03/04/18 04:28 21 03/04/18 03:32 66 03/04/18 02:56 97.8 71 18 117/66 (83) 93 03/03/18 23:54 97.8 73 18 110/65 (80) 95 03/03/18 20:05 97.9 81 16 122/61 (81) 93 03/03/18 17:06 97.8 70 18 125/69 (87) 98 03/03/18 14:58 18 03/03/18 14:58 84 18 155/79 (104) 96 Room Air 03/03/18 14:37 98.4 84 16 127/74 (91) 94 Result Diagram: 03/03/18 1500 03/03/18 1500 Objective Remarks GENERAL: Well-nourished, well-developed pleasant elderly female patient in [facility]. SKIN: Warm and dry. No rash. HEENT: Normocephalic. Atraumatic. Pupils equal and round. Mucous membranes pink and moist. CARDIOVASCULAR: Regular rate and rhythm. No murmur appreciated. RESPIRATORY: No accessory muscle use. Clear to auscultation. Breath sounds equal bilaterally. GASTROINTESTINAL: Abdomen soft, non-tender, nondistended. Normoactive bowel sounds x4. MUSCULOSKELETAL: No obvious deformities. Extremities without clubbing, cyanosis , or edema. NEUROLOGICAL: Awake and alert. No obvious cranial nerve deficits. Motor grossly within normal limits. Moving all extremities spontaneously. Normal speech. PSYCHIATRIC: Appropriate mood and affect; insight and judgment normal. Procedures 03/04/18 - EGD by Dr. Yost showed normal esophagus, fundoplication anatomy, small angiodysplastic lesion with no active bleeding Medications and IVs Current Medications Medications (Trade) Dose Ordered Sig/Damaris Route Start Time Stop Time Status Last Admin (Urecholine) 25 mg Q8HR PO 03/03/18 22:00 03/04/18 06:01 (Coreg) 6.25 mg BID PO 03/03/18 21:00 03/04/18 09:42 (Microzide) 25 mg DAILY PO 03/04/18 09:00 03/04/18 09:43 (Synthroid) 88 mcg DAILY@0600 PO 03/04/18 06:00 03/04/18 06:01 (Ambien) 10 mg HS PRN PO 03/03/18 16:15 (Cozaar) 50 mg DAILY PO 03/04/18 09:00 03/04/18 09:42 (Lipitor) 20 mg DAILY PO 03/04/18 09:00 03/04/18 09:42 (NS Flush) 2 ml UNSCH PRN IV FLUSH 03/03/18 16:30 (NS Flush) 2 ml BID IV FLUSH 03/03/18 21:00 (Reglan Inj) 5 mg Q6H PRN IV PUSH 03/03/18 16:30 (Tylenol) 650 mg Q6H PRN PO 03/03/18 16:30 (Percocet 5-325 Mg) 1 tab Q6H PRN PO 03/03/18 16:30 (Percocet 10-325 Mg) 1 tab Q6H PRN PO 03/03/18 16:30 (Morphine Inj) 2 mg Q3H PRN IV PUSH 03/03/18 18:15 (Morphine Inj) 4 mg Q3H PRN IV PUSH 03/03/18 18:15 (Narcan Inj) 0.4 mg UNSCH PRN IV PUSH 03/03/18 16:30 (Olga Lidia-Colace) 1 tab BID PO 03/03/18 21:00 03/04/18 09:42 (Milk Of Magnesia Liq) 30 ml Q12H PRN PO 03/03/18 16:30 (Senokot) 17.2 mg Q12H PRN PO 03/03/18 16:30 (Dulcolax Supp) 10 mg DAILY PRN RECTAL 03/03/18 16:30 (Lactulose Liq) 30 ml DAILY PRN PO 03/03/18 16:30 Sodium Chloride 1,000 ml @ 100 mls/hr Q10H IV 03/03/18 18:00 03/04/18 06:01 (Protonix Inj) 40 mg BID IV PUSH 03/03/18 21:00 03/04/18 09:43 (Zofran Odt) 4 mg Q6H PRN PO 03/03/18 18:30 Lactated Ringer's 1,000 ml @ 30 mls/hr Q24H PRN IV 03/04/18 06:30 03/07/18 06:29 Sodium Chloride 500 ml @ 30 mls/hr [id number] PRN IV 03/04/18 06:30 03/07/18 06:29 (Betadine 5% Antisepsis Kit) 1 applic COW TENDER PRN EACH NARE 03/04/18 06:30 03/07/18 06:29 (Chlorhexidine 2% Cloth) 3 pack COW TENDER PRN TOPICAL 03/04/18 06:30 03/07/18 06:29 (Carafate) 1 gm ACHS PO 03/04/18 08:58 03/04/18 09:42 ([facility] [place] [facility] Information) ALL NURSING DEPARTME... UNSCH PRN .XX 03/04/18 09:45 03/05/18 09:44 A/P Problem List: (1) Upper GI bleed ICD Code: K92.2 - Gastrointestinal hemorrhage, unspecified Status: Acute Assessment and Plan 77-year-old female with history of HTN, HLD, stomach cancer s/p laser surgery 2011, breast cancer s/p lumpectomy, gastroparesis, GERD, chronic back pain, hypothyroidism, arthritis, presents with hematemesis. GI Bleeding: presented with hematemesis and melena. Takes meloxicam, BC powder, aspirin. 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 Will advance diet to soft foods and discharge after dinner if the patient tolerates well. Discussed with RN, experience planning strategist. Discharge patient to home Condition on discharge: Stable Heart Healthy/Soft Diet as tolerated Ad Shaila activity Rx written: Carafate 1gm po achs [id number] Follow-up with primary care physician and gastroenterology within 1 week Yolande Fountain PA-C March 04, 2018 07:27
--- NOTE | 2018-03-04 08:14 | MB ---
cc: Gilberto Yost MD,Ramin Palacio,Gumaro Conway,Walter León MD DATE: 03/03/2018 HISTORY OF PRESENT ILLNESS: The patient is a 77-year-old white female I was asked to see for further evaluation and management of hematemesis and melena. For the past week, she has been experiencing some nausea and "spitting up" of blood-tinged saliva. She denies hemoptysis. Yesterday and today, she noticed coffee ground emesis and black tarry stool. No abdominal pain or lightheadedness or dizziness. No episodes similar to this. On questioning, she has been experiencing some dry heaves before the hematemesis. 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 No abnormalities were found at that time. Her last colonoscopy was performed at the same time and small adenomatous polyps were removed. PAST MEDICAL HISTORY: Significant for hypertension, hyperlipidemia, hypothyroidism, gastroparesis and chronic back pain. PAST SURGICAL HISTORY: Hysterectomy and appendectomy. MEDICATIONS ON ADMISSION: 1. Hydrochlorothiazide 25 mg daily. 2. Crestor 10 mg daily. 3. Carvedilol 6.25 mg twice a day. 4. Benicar 20 mg daily. 5. Levothyroxine 88 mcg daily. 6. Bethanechol 25 mg 1-4 times per day as needed. 7. Nexium 40 mg daily. 8. Meloxicam 7.5 mg daily. 9. Zolpidem 10 mg at bedtime as needed. 10. Baby aspirin 81 mg daily. 11. BC powders daily. ALLERGIES: NONE KNOWN TO MEDICATIONS. SOCIAL HISTORY: Tobacco use: Never. Alcohol use: Never. FAMILY HISTORY: Heart disease. REVIEW OF SYSTEMS: She has had no recent respiratory difficulties though had recently been diagnosed with sleep apnea. She has had no headaches, no vision difficulties. No dysphagia or odynophagia. She has early satiety. She has had no urinary symptoms, no rashes or joint pains, except for the chronic back pain. No recent unexplained weight loss. No history of pancreatic or liver disease. PHYSICAL EXAMINATION: VITAL SIGNS: There is nothing in the computer system here yet, so I have no vital signs right now. GENERAL: She is alert. She is oriented x 3. She is in no distress. HEENT: She is anicteric. Extraocular motions are intact. LYMPHATICS: I appreciate no submandibular, cervical, supraclavicular, axillary or epitrochlear adenopathy. LUNGS: Clear to auscultation. HEART: Regular rate and rhythm with no gross murmur or gallop. ABDOMEN: Good bowel sounds. No bruit. ABDOMEN: Soft and nontender. No masses or hepatosplenomegaly noted. EXTREMITIES: No pedal edema, Dupuytren's contractures or palmar erythema. DIAGNOSTIC STUDIES: No laboratory studies available yet. IMPRESSION: Hematemesis with melena in this patient who takes meloxicam, BC powders and Miranda aspirin. She does take Nexium daily. She has had some dry heaves before the hematemesis. We discussed Deidre-Aguayo tear, nonsteroidal antiinflammatory drug induced ulcers and other upper gastrointestinal mucosal lesions. PLAN: Check her labs, have her continue on a PPI here in the hospital. We will schedule panendoscopy for tomorrow. I discussed the procedure with the patient and her daughter, including potential risks of medication reaction, bleeding, perforation and the small chance of missing a lesion. MD CHERELLE Conde/SAMPSON , 03:25 PM , 04:00 PM
--- NOTE | 2018-03-04 08:51 | GIPROC ---
[facility] [address] [facility]. [facility], [address] EGD PROCEDURE REPORT EXAM DATE: 03/04/2018 PATIENT NAME: Evelin Chavez MR #: [id number] BIRTHDATE: 1940 ATTENDING: Gilberto Yost MD ORDER #: [id number] STAFF ELECTRICAL ENGINEER: Francesca Patricia and Seema Irwin STATUS: inpatient INDICATIONS: The patient is a 77 yr old female here for an EGD due to hematemesis/melena; none since yesterday. PROCEDURE PERFORMED: Panendoscopy with GI bleeding control MEDICATIONS GETG GET. TOPICAL ANESTHETIC: none CONSENT: The patient understands the risks and benefits of the procedure and understands that these risks include, but are not limited to: sedation, allergic reaction, infection, perforation and/or bleeding. Alternative means of evaluation and treatment include, among others: physical exam, x-rays, and/or surgical intervention. The patient elects to proceed with this endoscopic procedure. medical equipment was checked for proper function. Hand hygiene and appropriate measures for infection prevention was taken. After the risks, benefits and alternatives of the procedure were thoroughly explained, Informed consent was verified, confirmed and timeout was successfully executed by the treatment team. The patient was anesthetized with topical anesthesia and the BufferBoxax [id number] endoscope was introduced through the mouth and advanced to the . Retroflexed views revealed Fundoplication anatomy noted The gastroscope was then slowly withdrawn and removed. ESOPHAGUS: The mucosa of the esophagus appeared normal. STOMACH: Fundoplication anatomy noted on retroflexion. DUODENUM: A small angiodysplastic lesion with no bleeding found in the duodenal bulb. Argon plasma coagulation was applied to the site(s). With good treatment effect. ADVERSE EVENTS: There were no complications. IMPRESSIONS: 1. The esophagus appeared normal 2. Fundoplication anatomy noted on retroflexion 3. Small angiodysplastic lesion with no bleeding found in the duodenal bulb 4. Retroflexed views revealed Fundoplication anatomy noted RECOMMENDATIONS: Resume prior diet/medications. Start sucralfate, qid for ten days. PATIENT CONDITION: stable DISPOSITION: Inpatient REPEAT EXAM: PRN Gilberto Yost MD eSigned: Gilberto Yost MD 03/04/2018 8:51 AM cc: Juwan ordoñez M.D. PATIENT NAME: Evelin Chavez MR#: [id number]
[2018-03-04] MEDS ORDERED: LOSARTAN 50 MG TAB PO SCH (09:00)
[2018-03-04] MEDS ORDERED: ATORVASTATIN 20 MG TAB PO SCH (09:00)
[2018-03-04] MEDS ORDERED: HYDROCHLOROTHIAZIDE 12.5 MG CAP PO SCH (09:00)
[2018-03-04] MEDS ORDERED: *RESP: ALBUTEROL 2.5 MG/3 ML NEB (PRN) PERIprocedural Use ONLY NEB ONE (09:14)
--- NOTE | 2018-03-04 09:22 | HHI.GIFU ---
GI Follow-up Note Consult Follow-up Subjective: S/P EGD with APC of a duodenal AVM this morning. It's unclear whether this caused the bleeding or whether she'd had a Deidre Aguayo tear; there was no evidence of a tear today, but these notoriously heal quickly, often within 12-24 hours. She's been experiencing nausea/vomiting for 3-4 days ; this is likely due to a viral gastroenteritis. Zofran helps the symptoms. As she tolerates her diet, it may be advanced and she may be d/c'd home. She may follow up with . It was a pleasure seeing Evelin Chavez. Entered by: Gilberto Vargas MD March 04, 2018 09:22
[2018-03-04] MEDS: CARVEDILOL 6.25 MG TAB PO SCH (09:42)
[2018-03-04] MEDS: DOCUSATE SODIUM 50 MG/SENNA 8.6 MG TAB PO SCH (09:42)
[2018-03-04] MEDS: SUCRALFATE 1 GM TAB PO SCH ×2 (09:42→13:57)
[2018-03-04] MEDS: PANTOPRAZOLE SODIUM 40 MG VIAL IV PUSH SCH (09:43)
[2018-03-04] MEDS ORDERED: DO NOT ADM ANY ANTICOAGULANT DRUGS PRN (09:45)
[2018-03-04] MEDS ORDERED: VECURONIUM BROMIDE 20 MG VIAL IV ONE (12:00)
[2018-03-04] MEDS ORDERED: ESMOLOL HCL 100 MG/10 ML VIAL IV ONE (12:00)
[2018-03-04] MEDS ORDERED: SUCCINYLCHOLINE CHLORIDE 100 MG/5 ML SYRINGE IV PUSH ONE (12:00)
[2018-03-04] MEDS ORDERED: PROPOFOL 200 MG/20 ML AMP IV ONE (12:00)
[2018-03-04] MEDS ORDERED: EPINEPHrine HCL (1:1000) 1 MG/ML VIAL IV ONE (12:00)
[2018-03-04] MEDS ORDERED: LIDOCAINE HCL 1% PF 5 ML SYRINGE OTHER ONE (12:00)
[2018-03-04 12:54] VITALS: BP 119/77; PULSE 70; RESP 16; TEMP 98; O2SAT 98
[2018-03-04] MEDS: SODIUM CHLORIDE 0.9% FLUSH 10 ML FLUSH IV FLUSH SCH (13:57)
[2018-03-04] MEDS ORDERED: CARA1TAB6 PO (14:56)
[2018-03-04 17:15] VITALS: BP 133/68; PULSE 81; RESP 16; TEMP 98.9; O2SAT 98
[2018-03-04 17:17] LABS: PROTHROMBIN TIME - PATIENT 10.4 SEC (9.8-11.6)
[2018-03-04 17:24] LABS: AUTOMATED NEUTROPHIL # 5.8 TH/MM3 (1.8-7.7); BASOPHIL # 0.1 TH/MM3 (0-0.2); BASOPHIL % 0.5 % (0.0-2.0); EOSINOPHIL # 0.3 TH/MM3 (0-0.4); EOSINOPHIL % 2.7 % (0.0-4.0); HEMATOCRIT 41.2 % (35.0-46.0); HEMOGLOBIN 13.9 GM/DL (11.6-15.3); LYMPHOCYTE # 2.5 TH/MM3 (1.0-4.8); MEAN CORPUSCULAR HEMOGLOBIN 30.7 PG (27.0-34.0); MEAN CORPUSCULAR HGB CONC 33.8 % (32.0-36.0); MEAN PLATELET VOLUME 7.5 FL (7.0-11.0); MONO % 10.5 % (0.0-8.0); NEUT % 60.3 % (16.0-70.0); PLATELET COUNT 287 TH/MM3 (150-450); RED BLOOD COUNT 4.52 MIL/MM3 (4.00-5.30); RED CELL DISTRIBUTION WIDTH 14.1 % (11.6-17.2); WHITE BLOOD COUNT 9.7 TH/MM3 (4.0-11.0)
[2018-03-04 17:55] LABS: ALBUMIN 3.4 GM/DL (3.4-5.0); ALKALINE PHOSPHATASE 79 U/L (45-117); ALT (GPT) 14 U/L (10-53); AST (GOT) 18 U/L (15-37); BICARBONATE 28.2 MEQ/L (21.0-32.0); BLOOD UREA NITROGEN 5 MG/DL (7-18); CALCIUM 8.1 MG/DL (8.5-10.1); CHLORIDE 107 MEQ/L (98-107); CREATININE 0.78 MG/DL (0.50-1.00); FREE T4 1.19 NG/DL (0.76-1.46); GLOMERULAR FILTRATION RATE 72 ML/MIN (>89); GLUCOSE,RANDOM 81 MG/DL (74-106); MAGNESIUM 2.1 MG/DL (1.5-2.5); SODIUM (NA) 142 MEQ/L (136-145); TOTAL BILIRUBIN ADULT 0.4 MG/DL (0.2-1.0); TOTAL PROTEIN 7.1 GM/DL (6.4-8.2)
[2018-03-04 19:47] LABS: HEMOGLOBIN A1C 6.2 % (4.3-6.0)
--- NOTE | 2018-03-05 11:48 | EKG ---
Date Performed: 03/04/2018 Time Performed: 08:19:00 PTAGE: 77 years EKG: Sinus rhythm INCOMPLETE RIGHT BUNDLE BRANCH BLOCK BORDERLINE ECG PREVIOUS TRACING : 04/09/2015 11.19 DOCTOR: Antione Sylvester Interpretating Date/Time 03/05/2018 11:45:17
== END 2018-03-04 18:27 | disposition home or self-care (01) ==
LOC: NEPC 14:20 → NEDA 16:35 → NEPGCP 16:44
PROVIDERS: ADMIT Hospitalist; ATTEND Hospitalist
DX: K55.20 Angiodysplasia of colon without hemorrhage (principal); K92.0 Hematemesis; A08.4 Viral intestinal infection, unspecified; R19.7 Diarrhea, unspecified; R19.5 Other fecal abnormalities; M54.9 Dorsalgia, unspecified; E78.00 Pure hypercholesterolemia, unspecified; I11.0 Hypertensive heart disease with heart failure; E03.9 Hypothyroidism, unspecified; E78.5 Hyperlipidemia, unspecified; J44.9 Chronic obstructive pulmonary disease, unspecified; I50.9 Heart failure, unspecified; I25.10 Atherosclerotic heart disease of native coronary artery without angina pectoris; E11.43 Type 2 diabetes mellitus with diabetic autonomic (poly)neuropathy; K21.9 Gastro-esophageal reflux disease without esophagitis; K44.9 Diaphragmatic hernia without obstruction or gangrene; K31.84 Gastroparesis; R06.02 Shortness of breath; M17.0 Bilateral primary osteoarthritis of knee; Z79.82 Long term (current) use of aspirin; Z85.028 Personal history of other malignant neoplasm of stomach; Z92.3 Personal history of irradiation; Z85.3 Personal history of malignant neoplasm of breast
CPT/HCPCS: 00731; 43255; 80053; 83036; 83690; 83735; 84100; 84439; 84443; 85025; 85610; 85730; 86077; 86850; 86870; 86900; 86901; 86920; 86922; 87493; 87506; 93005; 94664; 96361; 96365; 96375; 96376; 99285; C9113; G0378; J0171; J0330; J3010; J7030; J7613